=== PATIENT | female | born 1990 | race Caucasian/White ===

== ENCOUNTER 2016-10-26 02:19 | Inpatient (IN) | payer BC, OTHER ==
[~2016-10-26] VITALS: Ht 154.9 cm; Wt 69.0 kg
[~2016-10-26 02:19] MED LIST: BUPRENORPHIN-N1 EACH PO; COLACE100 MG PO; ENDOCET 5-3251 EACH PO; FERROUS SULFAT325 MG PO; IBUPROFEN800 MG PO; KEFLEX500 MG PO; NOHOMEMEDS; PRENATAL ONE T1 EACH PO; Prometrium PO; Subutex SL; ZITHROMAX Z PACK PO; ZOFRAN4 MG PO; ~No Medications
[2016-10-26 02:22] VITALS: BP 123/58
[2016-10-26 03:09] VITALS: BP 113/60
[2016-10-26] MEDS ORDERED: IBUPROFEN800 MG PO (03:09)
[2016-10-26] MEDS ORDERED: METHADONE1 MG/1 ML PO (03:58)
[2016-10-26 07:02] LABS: AMPHETAMINES QUANT VALUE 0 NG/ML; BARBITUATES QUANT VALUE 0 NG/ML; BENZODIAZEPINES QUANT VALUE 0 NG/ML; BENZODIAZEPINES, URINE SCREEN Negative (200 ng/mL); MARIJUANA QUANT VALUE 0 NG/ML; OPIATES QUANTITATIVE VALUE 0 NG/ML; PHENCYCLIDINE QUANT VALUE 0 NG/ML
[2016-10-26 07:23] VITALS: BP 77/41
[2016-10-26 15:35] VITALS: BP 106/59
[2016-10-26 23:18] VITALS: BP 120/70
[2016-10-27 07:43] VITALS: BP 122/71
[2016-10-27 09:44] LABS: EOSINOPHIL (%) 0.9 % (0-5); EOSINOPHIL COUNT 0.1 K/uL (0-0.3); HEMATOCRIT 20.7 % (36.0-46.0); IMMATURE GRANULOCYTE (%) 0.5 % (0.0-0.7); IMMATURE GRANULOCYTE COUNT 0.1 K/uL; LYMPHOCYTE COUNT 2.5 K/uL (1.0-2.8); MCH 27.6 PG (29.0-34.0); MCHC 32.4 G/DL (30.0-36.0); MCV 85.2 FL (83-99); MONOCYTE COUNT 0.7 K/uL (0-0.8); NEUTROPHIL (%) 71.1 % (45-76); NEUTROPHIL COUNT 8.3 K/uL (1.8-6.4); PLATELET COUNT 192 K/uL (156-360); RBC DIS.WIDTH-CV 13.4 % (11.8-14.6); RBC DIS.WIDTH-SD 40.9 % (39-53); RED BLOOD COUNT 2.43 M/uL (3.80-5.20); WHITE BLOOD COUNT 11.7 K/uL (4.1-10.2)
[2016-10-27 10:14] VITALS: BP 112/59
[2016-10-27 10:16] VITALS: BP 114/60
[2016-10-27 10:17] VITALS: BP 101/54
[2016-10-27 14:10] VITALS: BP 91/56
[2016-10-27 23:36] VITALS: BP 107/68
[2016-10-28] MEDS ORDERED: FERROUS SULFAT325 MG PO (09:29)
== END 2016-10-28 12:45 | disposition home or self-care (01) | DRG 775 ==
LOC: LDRP-OP 02:19 → 2WEST 02:20 → LDRP-OP 12-06 12:37
PROVIDERS: Midwife; Obstetrics & Gynecology
DX: Z39.0 Encounter for care and examination of mother immediately after delivery (principal); O99.324 Drug use complicating childbirth; F11.20 Opioid dependence, uncomplicated; D62 Acute posthemorrhagic anemia; O62.3 Precipitate labor; F17.210 Nicotine dependence, cigarettes, uncomplicated; O70.0 First degree perineal laceration during delivery; O99.334 Smoking (tobacco) complicating childbirth; Z3A.38 38 weeks gestation of pregnancy; F12.90 Cannabis use, unspecified, uncomplicated; O99.02 Anemia complicating childbirth; Z98.1 Arthrodesis status
CPT/HCPCS: 85025

== ENCOUNTER 2017-02-15 08:02 | Day surgery (SDC) | payer OTHER ==
[~2017-02-15] VITALS: Ht 157.5 cm; Wt 73.0 kg
[~2017-02-15 08:02] MED LIST changes: +METHADONE1 MG/1 ML PO; +ORTHO CYCLEN1 TABLET PO; +VITAMIN D-32000 UNI2 PO; +ZOCOR10 MG PO; +ZOLOFT50 MG PO
[2017-02-15 08:25] VITALS: BP 108/53
[2017-02-15 12:06] VITALS: BP 96/60
[2017-02-15 12:57] VITALS: BP 100/55
== END 2017-02-15 13:01 | disposition home or self-care (01) ==
LOC: SDC 08:02
PROC: 0UBC7ZX Excision of Cervix, Via Natural or Artificial Opening, Diagnostic (ICD-10-PCS; principal; 2017-02-15)
DX: D06.7 Carcinoma in situ of other parts of cervix (principal); F17.210 Nicotine dependence, cigarettes, uncomplicated; Z81.1 Family history of alcohol abuse and dependence; Z82.49 Family history of ischemic heart disease and other diseases of the circulatory system; Z80.3 Family history of malignant neoplasm of breast; Z80.1 Family history of malignant neoplasm of trachea, bronchus and lung; Z82.5 Family history of asthma and other chronic lower respiratory diseases
CPT/HCPCS: 88305; 88307; 88342 TC; J0131; J1100; J1885; J2250; J2405; J2765; J3010

== ENCOUNTER 2017-09-18 09:13 | Outpatient (CLI) | payer OTHER ==
[~2017-09-18] VITALS: Ht 154.9 cm; Wt 73.6 kg
[2017-09-18 09:37] VITALS: BP 111/58
[2017-09-18 11:20] LABS: AMPHETAMINES QUANT VALUE 0 NG/ML; BARBITUATES QUANT VALUE 0 NG/ML; BENZODIAZEPINES QUANT VALUE 0 NG/ML; BENZODIAZEPINES, URINE SCREEN Negative (200 ng/mL); MARIJUANA QUANT VALUE 0 NG/ML; OPIATES QUANTITATIVE VALUE 0 NG/ML; PHENCYCLIDINE QUANT VALUE 0 NG/ML
[2017-09-18 12:34] VITALS: BP 103/59
[2017-09-20 12:39] LABS: CHLAMYDIA TRACHOMATIS NEGATIVE; NEISSERIA GONORRHOEAE NEGATIVE
== END 2017-09-18 13:40 | disposition short-term general hospital (02) ==
LOC: LDRP-OP 09:13 → 2WEST 09:14
PROVIDERS: Advanced Practice Midwife
DX: O42.912 Preterm premature rupture of membranes, unspecified as to length of time between rupture and onset of labor, second trimester (principal); Z3A.27 27 weeks gestation of pregnancy; O32.1XX0 Maternal care for breech presentation, not applicable or unspecified
CPT/HCPCS: 59025; 80306 90; 87491; 87591; G0378; J0290; J0702; J7050; J7120